=== PATIENT | female | born 1975 | race Caucasian/White ===

== ENCOUNTER → 2018-01-17 12:43 | Outpatient (CLI) | payer OTHER, SELFPAY ==
--- NOTE | 2018-01-17 | DI.US.S_ITS ---
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 Comparison is made to exams dated: 01/17/2018 mammogram, 06/29/2017 ultrasound, 06/29/2017 mammogram, 12/22/2016 mammogram, and 12/22/2016 ultrasound - [facility]. Color flow and real-time ultrasound of the right breast were performed on the areas of interest. Sotelo scale images of the real-time examination were reviewed. There is a stable 0.5 cm x 0.4 cm x 0.7 cm cluster of microcysts in the right breast at 10 o'clock anterior depth 3 cm from the nipple. Color flow imaging demonstrates that there is no vascularity present. There also is a 0.3 cm x 0.4 cm x 0.4 cm mass in the right breast at 9 o'clock anterior depth 3 cm from the nipple. This abnormality is decreased in size. IMPRESSION: PROBABLY BENIGN - FOLLOW-UP RECOMMENDED The stable 0.5 cm x 0.4 cm x 0.7 cm cluster of microcysts in the right breast at 10 o'clock anterior depth is probably benign. The 0.3 cm x 0.4 cm x 0.4 cm mass in the right breast at 9 o'clock anterior depth is probably benign. A follow-up ultrasound in 6 months is recommended to demonstrate stability. This exam was interpreted at Station ID: [id number]. Electronically Signed By: Pat raymond/:01/17/2018 15:11:46 letter sent: Followup Recommended Ultrasound BI-RADS: 3 Probably benign
--- NOTE | 2018-01-17 | DI.MG.S_ITS ---
BILATERAL DIGITAL DIAGNOSTIC MAMMOGRAM 3D/2D SHORT-TERM FOLLOW-UP: 01/17/2018 CLINICAL: Patient returns for 6 month follow up of right breast, due for bilateral exam. Comparison is made to exams dated: 06/29/2017 mammogram, 12/22/2016 mammogram, and 12/16/2016 mammogram - [facility]. The tissue of both breasts is heterogeneously dense. This may lower the sensitivity of mammography. The 5 mm reniform asymmetry in the right breast middle depth central to the nipple seen on the craniocaudal view only is no longer seen. No other significant masses, calcifications, or other findings are seen in either breast. IMPRESSION: INCOMPLETE: NEEDS ADDITIONAL IMAGING EVALUATION Right breast asymmerty no longer seen on Mammogram. Ultrasound recommended to further characterize findings. This exam was interpreted at Station ID: [id number]. NOTE: For mammograms, a report in lay terms will be sent to the patient. Approximately 15% of breast malignancies will not be visualized mammographically. In the management of a palpable breast mass, a negative mammogram must not discourage biopsy of a clinically suspicious lesion. Electronically Signed By: Pat raymond/:01/17/2018 13:15:53 letter sent: Additional Imaging Needed ACR BI-RADS Category 0: Incomplete 3340F
== END ==
PROVIDERS: PCP Family Medicine; Visit Provider Family Medicine
DX: D24.1 Benign neoplasm of right breast (principal)
CPT/HCPCS: 76642; 77066; G0279

== ENCOUNTER → 2018-07-03 13:00 | Outpatient (CLI) | payer OTHER, SELFPAY | PROVIDERS: PCP Family Medicine | DX: Z23 Encounter for immunization (principal) | CPT/HCPCS: 90471; 90686 ==

== ENCOUNTER → 2018-07-26 09:41 | Outpatient (CLI) | payer OTHER, SELFPAY ==
--- NOTE | 2018-07-26 | DI.US.S_ITS ---
ULTRASOUND OF RIGHT BREAST: 07/26/2018 CLINICAL: 6 month follow-up of cysts. Comparison is made to exams dated: 01/17/2018 ultrasound, 01/17/2018 mammogram, and 06/29/2017 [facility]. Color flow and real-time ultrasound of the right breast were performed on the areas of interest. Sotelo scale images of the real-time examination were reviewed. There is 0.5 cm x 0.4 cm x 0.7 cm cluster of microcysts in the right breast at 10 o'clock anterior depth 3 cm from the nipple. This abnormality is not significantly changed. Color flow imaging demonstrates that there is no vascularity present. There also is a probable complicated cyst in the right breast at 9 o'clock anterior depth. This abnormality is decreased in size. IMPRESSION: PROBABLY BENIGN The 0.5 cm x 0.4 cm x 0.7 cm cluster of microcysts in the right breast at 10 o'clock anterior depth is probably benign. The probable complicated cyst in the right breast at 9 o'clock anterior depth is probably benign. A follow-up ultrasound in 6 months is recommended to demonstrate stability. This exam was interpreted at Station ID: [id number]. SUMMARY: The patient will be due for her bilateral mammogram at this time. Electronically Signed By: Pat raymond/:07/26/2018 12:04:15 letter sent: Followup Recommended Ultrasound BI-RADS: 3 Probably benign
== END ==
PROVIDERS: PCP Family Medicine; Visit Provider Family Medicine
DX: R92.8 Other abnormal and inconclusive findings on diagnostic imaging of breast (principal); N60.01 Solitary cyst of right breast
CPT/HCPCS: 76642

== ENCOUNTER → 2018-12-27 10:41 | Outpatient (CLI) | payer OTHER, SELFPAY ==
--- NOTE | 2018-12-27 | DI.US.S_ITS ---
LIMITED ULTRASOUND OF RIGHT BREAST: 12/27/2018 CLINICAL: F/u of rt breast lesions. Comparison is made to exams dated: 07/26/2018 ultrasound, 01/17/2018 ultrasound, 01/17/2018 mammogram, 06/29/2017 ultrasound, and 12/22/2016 ultrasound [facility]. Color flow and real-time ultrasound of the right breast 9-10 o'clock region were performed on the areas of interest. There is a benign 0.8 cm x 0.4 cm x 0.6 cm cluster of oval micro cysts with a septated internal wall in the right breast at 10 o'clock middle depth. This cluster of oval micro cysts is hypoechoic. These abnormalities are not significantly changed. Color flow imaging demonstrates that there is no vascularity present. There also is a benign 0.3 cm x 0.3 cm x 0.3 cm oval cyst with debris in the right breast at 9 o'clock middle depth. This oval cyst with debris is hypoechoic with a well-defined boundary and posterior acoustic enhancement. This abnormality is not significantly changed. Color flow imaging demonstrates that there is no vascularity present. The findings are stable compared to prior exams dating back to 12/22/16. IMPRESSION: BENIGN There is no sonographic evidence of malignancy. The 0.8 cm x 0.4 cm x 0.6 cm cluster of oval micro cysts in the right breast at 10 o'clock middle depth is benign. The 0.3 cm x 0.3 cm x 0.3 cm oval cyst with debris in the right breast at 9 o'clock middle depth is benign. Return to annual mammogram screening schedule is recommended. This exam was interpreted at Station ID: [id number]. Electronically Signed By: David balderas/:12/27/2018 16:24:25 letter sent: Normal Exam Ultrasound BI-RADS: 2 Benign
== END ==
PROVIDERS: PCP Family Medicine; Visit Provider Family Medicine
DX: R92.8 Other abnormal and inconclusive findings on diagnostic imaging of breast (principal); N60.01 Solitary cyst of right breast
CPT/HCPCS: 76642

== ENCOUNTER → 2019-01-17 12:20 | Outpatient (CLI) | payer OTHER, SELFPAY ==
--- NOTE | 2019-01-17 | DI.MG.S_ITS ---
BILATERAL DIGITAL SCREENING MAMMOGRAM 3D/2D WITH CAD: 01/17/2019 CLINICAL: Routine screening. Comparison is made to exams dated: 01/17/2018 mammogram and 12/16/2016 mammogram - [facility]. The tissue of both breasts is heterogeneously dense. This may lower the sensitivity of mammography. Current study was also evaluated with a Computer Aided Detection (CAD) system. No significant masses, calcifications, or other findings are seen in either breast. There has been no significant interval change. IMPRESSION: NEGATIVE There is no mammographic evidence of malignancy. A 1 year screening mammogram is recommended. This exam was interpreted at Station ID: [id number]. NOTE: For mammograms, a report in lay terms will be sent to the patient. Approximately 15% of breast malignancies will not be visualized mammographically. In the management of a palpable breast mass, a negative mammogram must not discourage biopsy of a clinically suspicious lesion. Electronically Signed By: Yumiko pride/arik:01/17/2019 16:53:12 letter sent: Normal Exam ACR BI-RADS Category 1: Negative 3341F
== END ==
PROVIDERS: PCP Family Medicine; Visit Provider Family Medicine
DX: Z12.31 Encounter for screening mammogram for malignant neoplasm of breast (principal)
CPT/HCPCS: 77063; 77067

== ENCOUNTER → 2019-08-02 09:42 | Outpatient (CLI) | payer OTHER, SELFPAY | PROVIDERS: PCP Family Medicine | DX: Z23 Encounter for immunization (principal) | CPT/HCPCS: 90471; 90686 ==

== ENCOUNTER → 2020-03-11 11:52 | Outpatient (CLI) | payer OTHER, SELFPAY ==
--- NOTE | 2020-03-11 | DI.MG.S_ITS ---
BILATERAL DIGITAL SCREENING MAMMOGRAM 3D/2D WITH CAD: 03/11/2020 CLINICAL: Routine screening. Comparison is made to exams dated: 01/17/2019 mammogram, 01/17/2018 mammogram, 06/29/2017 mammogram, 12/22/2016 mammogram, and 12/16/2016 mammogram - [facility]. The tissue of both breasts is heterogeneously dense. This may lower the sensitivity of mammography. Current study was also evaluated with a Computer Aided Detection (CAD) system. No significant masses, calcifications, or other findings are seen in either breast. There has been no significant interval change. IMPRESSION: NEGATIVE There is no mammographic evidence of malignancy. A 1 year screening mammogram is recommended. This exam was interpreted at Station ID: [id number]. NOTE: For mammograms, a report in lay terms will be sent to the patient. Approximately 15% of breast malignancies will not be visualized mammographically. In the management of a palpable breast mass, a negative mammogram must not discourage biopsy of a clinically suspicious lesion. Electronically Signed By: David balderas/arik:03/11/2020 16:33:15 letter sent: Normal Exam ACR BI-RADS Category 1: Negative 3341F
== END ==
PROVIDERS: PCP Family Medicine; Referring Provider Family Medicine; Visit Provider Family Medicine
DX: Z12.31 Encounter for screening mammogram for malignant neoplasm of breast (principal)
CPT/HCPCS: 77063; 77067

== ENCOUNTER → 2020-03-16 10:45 | Outpatient (CLI) | payer OTHER, SELFPAY ==
[2020-03-17 14:00] LABS: COVID19 Sendout Not Detected (Not Detect)
== END ==
PROVIDERS: PCP Family Medicine; Visit Provider Physician Assistant
DX: Z11.59 Encounter for screening for other viral diseases (principal); R50.9 Fever, unspecified
CPT/HCPCS: 87635

== ENCOUNTER → 2020-05-30 10:25 | Outpatient (CLI) | payer OTHER, SELFPAY ==
[2020-06-01 09:28] LABS: COVID19 Sendout Not Detected (Not Detect)
== END ==
PROVIDERS: PCP Family Medicine; Visit Provider Physician Assistant
DX: Z11.59 Encounter for screening for other viral diseases (principal)
CPT/HCPCS: 87635

== ENCOUNTER → 2021-03-12 08:04 | Outpatient (CLI) | payer OTHER, SELFPAY ==
--- NOTE | 2021-03-12 | DI.MG.S_ITS ---
BILATERAL DIGITAL SCREENING MAMMOGRAM 3D/2D WITH CAD: 03/12/2021 CLINICAL: Routine screening. Comparison is made to exams dated: 03/11/2020 mammogram, 01/17/2019 mammogram, and 01/17/2018 mammogram - [facility]. The tissue of both breasts is heterogeneously dense. This may lower the sensitivity of mammography. Current study was also evaluated with a Computer Aided Detection (CAD) system. No significant masses, calcifications, or other findings are seen in either breast. There has been no significant interval change. IMPRESSION: NEGATIVE There is no mammographic evidence of malignancy. A 1 year screening mammogram is recommended. This exam was interpreted at Station ID: [id number]. NOTE: For mammograms, a report in lay terms will be sent to the patient. Approximately 15% of breast malignancies will not be visualized mammographically. In the management of a palpable breast mass, a negative mammogram must not discourage biopsy of a clinically suspicious lesion. Electronically Signed By: Hector Newberry M.D., jr/arik:03/12/2021 10:48:17 letter sent: Normal Exam ACR BI-RADS Category 1: Negative 3341F
== END ==
PROVIDERS: PCP Family Medicine; Referring Provider Family Medicine; Visit Provider Family Medicine
DX: Z12.31 Encounter for screening mammogram for malignant neoplasm of breast (principal)
CPT/HCPCS: 77063; 77067

== ENCOUNTER → 2021-08-07 15:12 | Outpatient (CLI) | payer OTHER, SELFPAY | PROVIDERS: PCP Family Medicine; Referring Provider Internal Medicine; Visit Provider Internal Medicine | DX: Z23 Encounter for immunization (principal) | CPT/HCPCS: 90471; 90686 ==

== ENCOUNTER → 2022-04-28 14:10 | Outpatient (CLI) | payer OTHER, SELFPAY ==
--- NOTE | 2022-04-28 14:10 | DI.MG.S_ITS ---
BILATERAL DIGITAL SCREENING MAMMOGRAM 3D/2D WITH CAD: 04/28/2022 CLINICAL: Routine screening. Comparison is made to exams dated: 03/12/2021 mammogram, 03/11/2020 mammogram, and 01/17/2019 mammogram - [facility]. Both breasts are heterogeneously dense, which may obscure small masses (category c / 51-75% glandular tissue). Current study was also evaluated with a Computer Aided Detection (CAD) system. No significant masses, calcifications, or other findings are seen in either breast. There has been no significant interval change. IMPRESSION: NEGATIVE There is no mammographic evidence of malignancy. A 1 year screening mammogram is recommended. Based on the Tyrer Cuzick model (a risk assessment model) the patient's lifetime risk is 15.0% and her 10 year risk is 2.9%. According to the ACR, ACS, and NCCN guidelines, an annual breast MRI exam along with mammogram is recommended if the patient's lifetime risk is 20% or greater. This exam was interpreted at Station ID: [id number]. NOTE: For mammograms, a report in lay terms will be sent to the patient. Approximately 15% of breast malignancies will not be visualized mammographically. In the management of a palpable breast mass, a negative mammogram must not discourage biopsy of a clinically suspicious lesion. Electronically Signed By: Hector Newberry M.D., jr/arik:04/28/2022 15:53:08 letter sent: Normal Exam ACR BI-RADS Category 1: Negative 3341F
== END ==
PROVIDERS: PCP Family Medicine; Referring Provider Family Medicine; Visit Provider Family Medicine
DX: Z12.31 Encounter for screening mammogram for malignant neoplasm of breast (principal)
CPT/HCPCS: 77063; 77067

== ENCOUNTER → 2022-06-16 07:34 | Outpatient (CLI) | payer OTHER, SELFPAY | PROVIDERS: PCP Family Medicine; Visit Provider Nurse Practitioner Family | DX: J02.9 Acute pharyngitis, unspecified (principal) | CPT/HCPCS: 87070 ==

== ENCOUNTER → 2022-07-15 09:06 | Outpatient (CLI) | payer OTHER, SELFPAY ==
[2022-07-15 11:50] LABS: COVID19 -Nasal RAPID Negative (Negative)
== END ==
PROVIDERS: PCP Family Medicine; Visit Provider Surgery
DX: Z20.822 Contact with and (suspected) exposure to COVID-19 (principal); Z01.812 Encounter for preprocedural laboratory examination
CPT/HCPCS: 87635; C9803

== ENCOUNTER 2022-07-16 06:42 | Day surgery (SDC) | payer OTHER, SELFPAY ==
[2022-07-16 07:12] VITALS: BP 146/92; PULSE 81; RESP 20; TEMP 36.7; O2SAT 98; BMI 25.1
--- NOTE | 2022-07-16 07:42 | PM.HP.1 ---
History of Present Illness History of Present Illness Date Patient Seen: 07/16/22 Time Patient Seen: 07:42 Chief complaint: SDC Narrative: First colonoscopy for colon cancer screening, on family history or symptoms Patient History Family & Social History Social History: household members spouse Tobacco & Substance use: Smoking Status Never smoker alcohol intake frequency 0-2 drinks per day Substance Use Type does not use Meds Home Medications and Allergies Home Medications Medication Instructions Recorded Confirmed Type melatonin 3 mg tablet 3 mg PO HS ##0 12/20/16 07/16/22 History multivitamin (Multiple Vitamins 1 tab PO QDAY ##0 12/20/16 07/16/22 History tablet) sertraline 100 mg tablet (Zoloft) 100 mg PO QDAY ##0 12/20/16 07/16/22 History Allergies Allergy/AdvReac Type Severity Reaction Status Date / Time Penicillins [PENICILLINS] Allergy Unknown Verified 07/16/22 07:11 Review of Systems Review of Systems ROS: Yes All systems reviewed with the patient and are negative except as otherwise documented Exam Vital Signs (past 8 hours): - 07/16/22 07:12 Temperature 98.1 F Pulse Rate 81 Respiratory Rate 20 Blood Pressure 146/92 H Pulse Oximetry 98 Oxygen Delivery Method Room Air Oxygen Delivery Method Room Air Const General: cooperative and healthy appearing [facility] Head: normocephalic and atraumatic Ears: hearing grossly normal bilaterally Face and sinus: normal facial exam Eyes General: appearance normal, both eyes and all related structures Sclera: sclerae normal Neck Neck: full ROM and trachea midline Chest Chest: normal inspection of the chest Resp Effort & Inspection: normal respiratory effort Cardio Rate: regular rate Rhythm: regular rhythm GI Palpation: soft Skin General: no rashes or lesions noted Neuro General: patient alert, patient awake and patient oriented x3 Extrem General: normal to inspection Psych Appearance: grossly normal Mental Status: mental status grossly normal Judgment: judgment good Assessment & Plan Assessment & Plan narrative: colonoscopy with MAC for colon cancer screening COVID-19 COVID-19 status: Negative Time Spent With Patient Time with patient: less than 30 minutes Critical Care time: I spent a total of [] minutes of critical care time on this patient's care today; this time is exclusive of procedural time.
--- NOTE | 2022-07-16 08:29 | PM.OP.COLON ---
Operative Date/Time/Diagnoses Date of procedure: 07/16/22 Time of procedure: 08:29 Pre-op diagnosis: Colon cancer screening Post-op diagnosis: same Procedure & Clinicians Study performed: Colonoscopy with MAC Same procedure as scheduled: Yes Indications: Colon cancer screening Surgeon: Carlee Zavaleta Procedure Notes Procedure in detail: Preop diagnosis: Colon cancer screening Postop diagnosis: Same Operative procedure: Colonoscopy with MAC Surgeon: Rosario aZvaleta MD Findings: Normal colonoscopy. No polyps, no diverticulosis. Procedure: Patient placed in lateral position. Rectal exam performed showing normal tone no masses. Colonoscope inserted into the rectum and advanced to the ileocecal valve with a significant amount of difficulty using pressure and repositioning to achieve our goal. Insufflation extraction scope and the above findings. Impression: Normal colonoscopy. No polyps, no diverticulosis. Plan: Repeat colonoscopy for screening purposes in 10 years. Sooner if indicated by change in family history or clinical condition Specimen(s): none sent Complications: none Post-procedure Recommendations: Colonoscopy in 10 years Follow up: as needed Disposition: PACU
[2022-07-16 08:32] VITALS: BP 100/74; PULSE 66; RESP 16; TEMP 36.6; O2SAT 100
[2022-07-16 08:36] VITALS: BP 129/85; PULSE 64; RESP 20; O2SAT 100
[2022-07-16 08:41] VITALS: BP 132/87; PULSE 64; RESP 17; TEMP 36.4; O2SAT 100
[2022-07-16 08:46] VITALS: BP 126/89; PULSE 67; RESP 18; TEMP 36.5; O2SAT 100
== END 2022-07-16 08:54 | disposition home or self-care (01) ==
PROVIDERS: PCP Family Medicine; Referring Provider Surgery; Visit Provider Surgery
PROC: 0DJD8ZZ Inspection of Lower Intestinal Tract, Via Natural or Artificial Opening Endoscopic (ICD-10-PCS; CPT 45378; principal; 2022-07-16 07:45)
DX: Z12.11 Encounter for screening for malignant neoplasm of colon (principal)
CPT/HCPCS: 45378; J2704

== ENCOUNTER → 2022-08-19 15:48 | Outpatient (CLI) | payer OTHER, SELFPAY | PROVIDERS: PCP Family Medicine; Referring Provider Internal Medicine; Visit Provider Internal Medicine | DX: Z23 Encounter for immunization (principal) | CPT/HCPCS: 90471; 90686 ==

== ENCOUNTER 2023-03-29 16:32 | Emergency (ER) | payer OTHER, SELFPAY ==
[2023-03-29 16:39] VITALS: BP 125/73; PULSE 72; RESP 14; TEMP 36.5; O2SAT 98; BMI 25.8
--- NOTE | 2023-03-29 17:13 | ED_ITS ---
HPI - General Adult <Karla Dorman PA-C - Last Filed: 03/29/23 18:24> General Chief complaint: Blood/Body fluid exposure Stated complaint: exposed to blood inthe eye in center Time Seen by Provider: 03/29/23 17:03 Source: patient Mode of arrival: Ambulatory History of Present Illness HPI narrative: Is a 48-year-old woman who presents with concern for work injury and body fluid exposure. 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 She is unsure if she closed her eyes before the blood splashed on her face. She washed her face immediately and then used an eye wash station but did not use the eye wash station for a few minutes. She states that she does not want post exposure prophylaxis as the patient is low risk. She herself has no known blood borne diseases to her knowledge. She denies any other complaints or concerns and presents with L and I paperwork today. Related Data Home Medications Medication Instructions Recorded Confirmed melatonin 3 mg tablet 3 mg PO HS ##0 12/20/1618 multivitamin (Multiple Vitamins 1 tab PO QDAY ##0 12/20/16 07/16/22 tablet) sertraline 100 mg tablet (Zoloft) 100 mg PO QDAY ##0 12/20/16 07/16/22 Allergies Allergy/AdvReac Type Severity Reaction Status Date / Time Penicillins [PENICILLINS] Allergy Unknown Verified 03/29/23 16:44 Review of Systems <Karla Dorman PA-C - Last Filed: 03/29/23 18:24> Review of Systems Narrative: See HPI Patient History <Karla Dorman PA-C - Last Filed: 03/29/23 18:24> Social History household members: spouse Smoking Status: Never smoker Smoking Status: Never smoker alcohol intake frequency: 0-2 drinks per day Alcohol type: wine Substance Use Type: does not use Exam <Karla Dorman PA-C - Last Filed: 03/29/23 18:24> Narrative Exam Narrative: GENERAL: [48] year old patient appears stated age. Well-developed patient, in mild distress. HEAD: Atraumatic. Normocephalic. EYES: Pupils equal round and reactive. Extraocular motions intact. No scleral icterus. Eyes are very mildly injected 2nd to washout without drainage. ENT: Nose without bleeding, purulent drainage. Airway patent. NECK: Trachea midline. CARDIOVASCULAR: Regular rate and rhythm without murmurs, gallops, or rubs. RESPIRATORY: Clear to auscultation. Breath sounds equal bilaterally. No wheezes, rales, or rhonchi. EXTREMITIES: No edema or joint tenderness. NEURO: AOx3. SKIN: No rash or erythema of visible areas Initial Vital Signs Initial Vital Signs: Vital Signs Temperature 97.7 F 03/29/23 16:39 Pulse Rate 72 03/29/23 16:39 Respiratory Rate 14 03/29/23 16:39 Blood Pressure 125/73 03/29/23 16:39 Pulse Oximetry 98 03/29/23 16:39 Oxygen Delivery Method Room Air 03/29/23 16:39 <Joaquin Huynh MD - Last Filed: 03/30/23 08:31> Initial Vital Signs Initial Vital Signs: Vital Signs Temperature 97.7 F 03/29/23 16:39 Pulse Rate 72 03/29/23 16:39 Respiratory Rate 14 03/29/23 16:39 Blood Pressure 125/73 03/29/23 16:39 Pulse Oximetry 98 03/29/23 16:39 Oxygen Delivery Method Room Air 03/29/23 16:39 Course <Karla Dorman PA-C - Last Filed: 03/29/23 18:24> Vital Signs Vital signs: Vital Signs - 8 hr 03/29/23 16:39 Temperature 97.7 F Pulse Rate 72 Respiratory Rate 14 Blood Pressure 125/73 Pulse Oximetry 98 Oxygen Delivery Method Room Air <Joaquin Huynh MD - Last Filed: 03/30/23 08:31> Vital Signs Vital signs: Vital Signs - 8 hr 03/29/23 16:39 Temperature 97.7 F Pulse Rate 72 Respiratory Rate 14 Blood Pressure 125/73 Pulse Oximetry 98 Oxygen Delivery Method Room Air Medical Decision Making <Karla Dorman PA-C - Last Filed: 03/29/23 18:24> Differential Diagnosis Differential Diagnosis: Body fluid exposure, blood exposure to eye, work injury Medical Records Medical records reviewed: Yes I reviewed the patient's medical records. Lab Data Lab results reviewed: Yes I reviewed the patient's lab results. Labs: Lab Results 03/29/23 03/29/23 03/29/23 Range/Units 16:53 16:53 16:53 ALT 21 (<35) IU/L Hep Bs Antigen Negative (NEGATIVE) s/c Hep Bs Antibody Reactive (.) Hepatitis C Antibody Negative (NEGATIVE) s/c HIV 1&2 Ab/P24 Ag 4thGn Negative (NEGATIVE) Treatment and disposition Shared decision making:: Shared decision-making was used in determining plan for evaluation and care in the emergency department plan for outpatient follow-up MDM Narrative Medical decision making narrative: 48-year-old woman presents with concern for body fluid exposure sustained at work working in [employer] [facility] when she had blood splashed into her eye when patient was cutting umbilical cord on his child. She wash her face immediately and then use an eye wash station afterwards, came to the emergency department with employee health treasury representative for lab draw. Labs are also being obtained from the source patient. Patient declined post exposure prophylaxis. L and [id number]. Patient will follow up with employee health regarding further blood draws and next steps. Return precautions provided, follow-up plan discussed, all questions answered. <Joaquin Huynh MD - Last Filed: 03/30/23 08:31> Lab Data Labs: Lab Results 03/29/23 03/29/23 03/29/23 Range/Units 16:53 16:53 16:53 ALT 21 (<35) IU/L Hep Bs Antigen Negative (NEGATIVE) s/c Hep Bs Antibody Reactive (.) Hepatitis C Antibody Negative (NEGATIVE) s/c HIV 1&2 Ab/P24 Ag 4thGn Negative (NEGATIVE) Discharge Plan Departure Patient Disposition: Home Clinical Impression: Exposure to blood or body fluid, Work related injury Instructions: DI for Accidental Exposure to Body Fluids Activity Restrictions/Additional Instructions: *You have been diagnosed with [accidental exposure to body fluid/blood in the eye, work injury] *What to do: *Please continue to take your regular medications as directed. [ ] New medication prescriptions sent to your pharmacy: [ ] [ ] New medication written as a paper prescription [X ] No new medications given *Please follow up with your primary care provider in 2-3 days, call for an appointment. Let them know you were seen in the Emergency Department and that we ask that you be seen in follow up. We will electronically transmit a record of today's note if your PCP is in our system. Thank you for your patients today, you had a body fluid exposure while at work with umbilical cord blood splashed in your eye, you washes out herself with an eye wash station so we did not do additional washing, you had labs drawn today according to the panel use by [facility], you will need to follow-up with employee health moving forward to coordinate regarding any additional lab draws that may need to occur and receiving results regarding these labs and labs from the source patient. We did discuss post exposure prophylaxis and you declined this today, I think this is reasonable based on your exposure/no known risk factors of source patient. I did complete your L and I paperwork today while you were in the emergency department and [place]. [id number] *If you do not have a primary care provider please contact the [facility] Resource line at [phone]. They will ask some questions about your medical history and help get you set up with a doctor in the community. *Return to Emergency Department if you should have any new, worsening or concerning symptoms, such as [fever greater than 101 F, shaking chills, worsening pain, persistent vomiting or other bothersome symptoms] Prescriptions: No Action multivitamin [Multiple Vitamins] 1 EACH tablet 1 tab PO QDAY Qty: 0 sertraline [Zoloft] 100 MG tablet 100 mg PO QDAY Qty: 0 melatonin 3 MG tablet 3 mg PO HS Qty: 0 Referrals: Karla Conroy MD [Primary Care Provider] - Stand Alone Forms: Patient Portal/API <Joaquin Huynh MD - Last Filed: 03/30/23 08:31> Cosign ED Attending Cosignature Attestation: I was immediately available in the department for consultation. ?This documentation has been reviewed and I agree with assessment and plan. Supervised by Joaquin Huynh MD
[2023-03-29 17:33] LABS: Alanine Aminotransferase 21 IU/L (<35)
[2023-03-29 20:06] LABS: Hepatitis B Surface Antigen NEGATIVE s/c (NEGATIVE)
[2023-03-29 20:20] LABS: HIV 1 & 2 Ab/Ag 4th Gen Combo NEGATIVE (NEGATIVE); Hep C Virus Ab w/Reflex Quant NEGATIVE s/c (NEGATIVE)
[2023-03-30 06:32] LABS: Hepatitis B Surf Ab Qualitativ Reactive (.)
== END 2023-03-29 18:15 | disposition home or self-care (01) ==
PROVIDERS: Emergency Medicine; Emergency Provider Student in an Organized Health Care Education/Training Program; PCP Family Medicine
DX: Z77.21 Contact with and (suspected) exposure to potentially hazardous body fluids (principal); Y99.0 Civilian activity done for income or pay
CPT/HCPCS: 99281

== ENCOUNTER → 2023-05-18 12:59 | Outpatient (CLI) | payer OTHER, SELFPAY ==
--- NOTE | 2023-05-18 | DI.MG.S_ITS ---
BILATERAL DIGITAL SCREENING MAMMOGRAM 3D/2D WITH CAD: 05/18/2023 CLINICAL: Routine screening. Comparison is made to exams dated: 04/28/2022 mammogram, 03/12/2021 mammogram, and 03/11/2020 mammogram - [facility]. Both breasts are heterogeneously dense, which may obscure small masses (category c / 51-75% glandular tissue). Current study was also evaluated with a Computer Aided Detection (CAD) system. No significant masses, calcifications, or other findings are seen in either breast. There has been no significant interval change. IMPRESSION: NEGATIVE There is no mammographic evidence of malignancy. A 1 year screening mammogram is recommended. Based on the Tyrer Cuzick model (a risk assessment model) the patient's lifetime risk is 15.1% and her 10 year risk is 3.1%. According to the ACR, ACS, and NCCN guidelines, an annual breast MRI exam along with mammogram is recommended if the patient's lifetime risk is 20% or greater. This exam was interpreted at Station ID: [id number]. NOTE: For mammograms, a report in lay terms will be sent to the patient. Approximately 15% of breast malignancies will not be visualized mammographically. In the management of a palpable breast mass, a negative mammogram must not discourage biopsy of a clinically suspicious lesion. Electronically Signed By: Christo acevedo/arik:05/18/2023 14:29:52 letter sent: Normal Exam ACR BI-RADS Category 1: Negative 3341F
== END ==
PROVIDERS: PCP Family Medicine; Referring Provider Family Medicine; Visit Provider Family Medicine
DX: Z12.31 Encounter for screening mammogram for malignant neoplasm of breast (principal)
CPT/HCPCS: 77063; 77067

== ENCOUNTER → 2023-07-26 12:08 | Outpatient (CLI) | payer OTHER, SELFPAY | PROVIDERS: PCP Family Medicine; Referring Provider Family Medicine; Visit Provider Family Medicine | DX: Z23 Encounter for immunization (principal) | CPT/HCPCS: 90471; 90686 ==

== ENCOUNTER → 2024-05-24 08:18 | Outpatient (CLI) | payer OTHER, SELFPAY ==
--- NOTE | 2024-05-24 08:19 | DI.MG.S_ITS ---
BILATERAL DIGITAL SCREENING MAMMOGRAM 3D/2D WITH CAD: 05/24/2024 CLINICAL: Routine screening. Comparison is made to exams dated: 05/18/2023 mammogram, 04/28/2022 mammogram, and 03/12/2021 mammogram - [facility]. The breasts are heterogeneously dense, which may obscure small masses (category c / 51-75% glandular tissue). Current study was also evaluated with a Computer Aided Detection (CAD) system. No significant masses, calcifications, or other findings are seen in either breast. There has been no significant interval change. IMPRESSION: NEGATIVE There is no mammographic evidence of malignancy. A 1 year screening mammogram is recommended. Based on the Tyrer Cuzick model (a risk assessment model) the patient's lifetime risk is 15.2% and her 10 year risk is 3.3%. According to the ACR, ACS, and NCCN guidelines, an annual breast MRI exam along with mammogram is recommended if the patient's lifetime risk is 20% or greater. This exam was interpreted at Station ID: [id number]. NOTE: For mammograms, a report in lay terms will be sent to the patient. Approximately 15% of breast malignancies will not be visualized mammographically. In the management of a palpable breast mass, a negative mammogram must not discourage biopsy of a clinically suspicious lesion. Electronically Signed By: Sisi Carlos M.D., Ph.D. zion/arik:05/25/2024 10:20:02 letter sent: Normal Exam ACR BI-RADS Category 1: Negative
== END ==
PROVIDERS: PCP Family Medicine; Referring Provider Family Medicine; Visit Provider Family Medicine
DX: Z12.31 Encounter for screening mammogram for malignant neoplasm of breast (principal); R92.333 Mammographic heterogeneous density, bilateral breasts
CPT/HCPCS: 77063; 77067

== ENCOUNTER → 2024-06-25 16:30 | Outpatient (CLI) | payer OTHER, SELFPAY | PROVIDERS: PCP Family Medicine; Referring Provider Internal Medicine; Visit Provider Internal Medicine | DX: Z23 Encounter for immunization (principal) | CPT/HCPCS: 90471; 90656 ==

== ENCOUNTER → 2025-05-25 12:40 | Outpatient (CLI) | payer OTHER, SELFPAY ==
--- NOTE | 2025-05-25 12:41 | DI.MG.S_ITS ---
MM screening mammo BI: 05/25/2025. BI-RADS: 1 CLINICAL: 50-year old female for bilateral screening mammogram. Tyrer-Cuzick lifetime risk of 13.3%. No personal or first-degree family history of breast cancer. PRIOR EXAMS 05/24/2024, 05/18/2023, 04/28/2022, 03/12/2021. MAMMOGRAPHY TECHNIQUE: 2D and 3D (tomosynthesis) digital mammographic views obtained, with additional images as needed for full coverage. Current study was also evaluated with a Computer Aided Detection (CAD) system. DENSITY C. The breasts are heterogeneously dense, which may obscure small masses. MAMMOGRAPHY FINDINGS Bilateral: No suspicious mass, asymmetry, microcalcification, or other abnormality seen. IMPRESSION: * No evidence of malignancy. RECOMMENDATIONS Bilateral * Annual screening mammography. OVERALL ASSESSMENT CATEGORY BI-RADS-1: Negative. The [employer] recommends annual screening mammography beginning at age 40 for women with average risk of breast cancer. ELECTRONICALLY SIGNED: Sisi Carlos M.D. on 05/27/2025 at 10:46:35 AM PT Interpreting Station ID: [id number]
== END ==
PROVIDERS: PCP Family Medicine; Referring Provider Family Medicine; Visit Provider Family Medicine
DX: Z12.31 Encounter for screening mammogram for malignant neoplasm of breast (principal); R92.333 Mammographic heterogeneous density, bilateral breasts
CPT/HCPCS: 77063; 77067